=== PATIENT | female | born 1990 | race Two or more races ===

== ENCOUNTER 2025-06-20 11:25 | Emergency (ER) | payer OTHER ==
[~2025-06-20] VITALS: Ht 162.6 cm; Wt 86.2 kg
[2025-06-20] MEDS ORDERED: IBU800 MG PO (17:49)
[2025-06-20] MEDS ORDERED: ACETAMINOPHEN500 M1 PO (17:58)
== END 2025-06-20 18:38 | disposition home or self-care (01) ==
LOC: ER 11:25
DX: M79.641 Pain in right hand (principal); Z88.0 Allergy status to penicillin; Z87.09 Personal history of other diseases of the respiratory system